=== PATIENT | female | born 1945 | race Caucasian/White ===

== ENCOUNTER 2022-11-10 10:16 | Emergency (ER) | payer MEDICARE, OTHER ==
[~2022-11-10] VITALS: Ht 152.4 cm; Wt 50.8 kg
--- NOTE | 2022-11-10 10:20 | NUR ---
BIBRA 102 C/O GENERALIZED WEAKNESS X 4 DAYS. GLUCOSE ON SCENE 107 BIBRA 102 C/O GENERALIZED WEAKNESS X 4 DAYS. GLUCOSE ON SCENE 107
--- NOTE | 2022-11-10 10:54 | NUR ---
established iv line 20 g at right ac
--- NOTE | 2022-11-10 10:54 | NUR ---
blood sample obtained
--- NOTE | 2022-11-10 11:03 | NUR ---
covid swab taken
[2022-11-10 11:10] LABS: BASOPHILS % (AUTO) 0.7 % (0.0-2.0); EOSINOPHILS % (AUTO) 2.3 % (0.0-6.0); HEMATOCRIT 38 % (33-45); HEMOGLOBIN 12.8 g/dL (11.5-14.8); LYMPHOCYTES # (AUTO) 1.2 K/uL (0.8-4.8); LYMPHOCYTES % (AUTO) 18.1 % (20.0-44.0); MEAN CORPUSCULAR HGB CONC 33 g/dl (31.0-36.0); MEAN CORPUSCULAR VOLUME 96 fL (82-100); MONOCYTES # (AUTO) 0.4 K/uL (0.1-1.30); MONOCYTES % (AUTO) 5.6 % (2.0-12.0); NEUTROPHILS # (AUTO) 4.9 K/uL (1.8-8.9); NEUTROPHILS % (AUTO) 73.3 % (43.0-81.0); PLATELET COUNT (AUTO) 137 K/uL (150-450); RED BLOOD CELL COUNT(AUTO) 4.02 MIL/uL (4.0-5.2); WHITE BLOOD COUNT (AUTO) 6.7 K/uL (4.3-11.0)
[2022-11-10 11:23] LABS: CALCIUM, SERUM 9.7 mg/dL (8.5-10.1); CARBON DIOXIDE 28 mmol/L (21-32); CHLORIDE 105 mmol/L (98-107); CREATININE 1.3 mg/dL (0.6-1.3); GLUCOSE 98 mg/dL (74-106); POTASSIUM 3.8 mmol/L (3.5-5.1); SODIUM SERUM 141 mmol/L (136-145); UREA NITROGEN, BLOOD 22 mg/dL (7-18)
[2022-11-10 11:44] LABS: ALANINE AMINOTRANSFERASE 26 U/L (12-78); ALKALINE PHOSPHATASE 80 U/L (46-116); ASPARTATE AMINOTRANSFERASE 29 U/L (15-37); BILIRUBIN,DIRECT 0.2 mg/dL (0.0-0.2); BILIRUBIN,TOTAL 0.7 mg/dL (0.2-1.0); TOTAL PROTEIN, SERUM 7.2 g/dL (6.4-8.2)
--- NOTE | 2022-11-10 11:50 | NUR ---
IV LINE ACCIDENTALLY REMOVED BY PATIENT
--- NOTE | 2022-11-10 12:41 | NUR ---
Ari barnes in [facility] - 11/10/22 at 1242 by DANIEL Patient discharged to home in stable condition. Written and verbal after care instructions given. Patient verbalizes understanding of instruction.
[2022-11-10 12:42] VITALS: BP 121/65
--- NOTE | 2022-11-10 12:42 | NUR ---
Patient discharged to home in stable condition. Written and verbal after care instructions given. Patient son verbalizes understanding of instruction.
== END 2022-11-10 12:42 | disposition home or self-care (01) ==
LOC: ER 10:20
DX: R53.1 Weakness (principal); F03.90 Unspecified dementia, unspecified severity, without behavioral disturbance, psychotic disturbance, mood disturbance, and anxiety; Z20.822 Contact with and (suspected) exposure to COVID-19
CPT/HCPCS: 99285; 71045; 87426; 93005; 85025; 80048; 80076; 36415; 84484; 83880; 82962; J7030; C9803